=== PATIENT | female | born 1985 | race Caucasian/White ===

== ENCOUNTER → 2020-04-29 10:17 | Outpatient (CLI) | payer OTHER, SELFPAY ==
--- NOTE | ~2020-04-29 | US_ITS ---
EXAMINATION: US transvaginal DATE: 04/29/2020 10:52 INDICATION: Abnormal uterine bleeding. TECHNIQUE: Multiple transvaginal sonographic images of the pelvis were obtained. COMPARISON: None. FINDINGS: The uterus measures 9.9 x 5.1 x 6.3 cm. There is no free fluid in the pelvis. The endometrial complex measures 1.6 cm in thickness. The right ovary measures 4.5 x 2.9 x 4.2 cm. The left ovary measures 2 .9 x 1.6 x 3.1 cm. There is normal vascular flow in the ovaries. IMPRESSION: 1. Normal pelvis. Reviewed, dictated and finalized at location A. IMPRESSION: 1. Normal pelvis.
== END ==
PROVIDERS: PCP Internal Medicine; Visit Provider Obstetrics & Gynecology
DX: N92.6 Irregular menstruation, unspecified (principal)
CPT/HCPCS: 76830

== ENCOUNTER 2020-05-24 12:54 | Outpatient (CLI) | payer OTHER, SELFPAY ==
--- NOTE | ~2020-05-24 | US_ITS ---
EXAMINATION: US OB <=14 wk fetus w TV DATE: 05/24/2020 13:35 INDICATION: Spotting and cramping during first trimester TECHNIQUE: Real-time pelvic transabdominal and transvaginal ultrasound was performed. COMPARISON: None. FINDINGS: The uterus measures 11.7 x 8.1 x 6.2 cm. There is an intrauterine gestational sac. A 2.6 x 1.1 x 0.5 cm hypoechoic area is seen adjacent to the gestational sac. A yolk sac is identified. Feta l heart motion is identified measuring 123 beats per minute (bpm) by M-mode Doppler. The crown rump length measures 2.0 cm , which correlates with an estimated gestational age of 6 weeks and 6 day (s) (+/-) 3 day(s). The right ovary measures 5.1 x 2.9 x 2.5 cm. The left ovary measures 2.3 x 1.8 x 1.6 cm. There is nor mal vascular flow in the ovaries. There is no free fluid in the pelvis. IMPRESSION: 1. Live intrauterine with an estimated gestational age of 6 weeks and 6 day(s) (+/-) 3 day( s) and an estimated delivery date of 01/11/2021. 2. Small subchorionic hemorrhage. Reviewed, dictated and finalized at location B. IMPRESSION: 1. Live intrauterine with an estimated gestational age of 6 weeks and 6 day(s) (+/-) 3 day(s) and an estimated delivery date of 01/11/2021. 2. Small subchorionic hemorrhage.
== END 2020-05-24 12:55 | disposition home or self-care (01) ==
PROVIDERS: PCP Internal Medicine; Visit Provider Obstetrics & Gynecology
DX: O26.851 Spotting complicating pregnancy, first trimester (principal); Z3A.01 Less than 8 weeks gestation of pregnancy; O36.8911 Maternal care for other specified fetal problems, first trimester, fetus 1
CPT/HCPCS: 76801; 76817

== ENCOUNTER → 2020-06-20 11:47 | Outpatient (CLI) | payer OTHER, SELFPAY ==
--- NOTE | ~2020-06-20 | US_ITS ---
EXAMINATION: US OB limited DATE: 06/20/2020 12:05 INDICATION: Vaginal spotting. Subchorionic hemorrhage. TECHNIQUE: Real-time ultrasound of the pelvis was performed. The interpreting radiologist was not pre sent for the study. COMPARISON: 05/24/2020 FINDINGS: The uterus measures 13.3 x 6.7 x 10.0. There is an intrauterine gestational sac. A yolk sac and pole are identified. heart motion is identified measuring 159 beats per minute (bpm) by M-mode Doppler. 2.0 x 1.4 x 1.3 cm subchorionic hematoma along the left side of the gestational sac. The ov guevara are not visualized. There is no free fluid in the pelvis. IMPRESSION: 1. Single living intrauterine fetus with heart of 159 bpm 2. Persistent small subchorionic hematoma. Reviewed, dictated and finalized at location A.
== END ==
PROVIDERS: Visit Provider Obstetrics & Gynecology Gynecology
DX: O26.851 Spotting complicating pregnancy, first trimester (principal); O36.8910 Maternal care for other specified fetal problems, first trimester, not applicable or unspecified
CPT/HCPCS: 76815

== ENCOUNTER → 2020-07-19 08:28 | Outpatient (CLI) | payer OTHER, SELFPAY ==
--- NOTE | ~2020-07-19 | US_ITS ---
US OB limited 07/19/2020 08:55 Indication: Follow-up subchorionic hemorrhage Procedure: High-resolution Limited transabdominal obstetrical ultrasound Comparison: 06/20/2020 Findings: Single living intrauterine identified in vertex presentation with heart rat e of 155 BPM. Placenta anterior without previa measuring 5.2 cm to the cervix. Amniotic fluid is subj ectively normal. Decreased size of subchorionic hemorrhage measuring 8 x 6 x 5 mm compared with 20 x 14 x 13 mm on prior examination. Impression: 1: Single living intrauterine in vertex presentation. 2: Decreased size of subchorionic hemorrhage compared with prior study. Reviewed, dictated and finalized at location A. Impression: 1: Single living intrauterine in vertex presentation. 2: Decreased size of subchorionic hemorrhage compared with prior study.
== END ==
PROVIDERS: Visit Provider Obstetrics & Gynecology Gynecology
DX: O36.8910 Maternal care for other specified fetal problems, first trimester, not applicable or unspecified (principal); Z3A.00 Weeks of gestation of pregnancy not specified
CPT/HCPCS: 76815

== ENCOUNTER → 2020-07-25 14:39 | Outpatient (CLI) | payer OTHER, SELFPAY ==
--- NOTE | ~2020-07-25 | US_ITS ---
US OB limited DATE: 07/25/2020 14:56 INDICATION: Follow-up of subchorionic hematoma. Minimal vaginal spotting this week TECHNIQUE: Real-time imaging and Doppler analysis COMPARISON: 07/19/2020 obstetrical ultrasound Limited examination FINDINGS: Live single intrauterine gestation, fetus in variable position. The placenta is anterior. F etal heart rate 150 bpm. Subjectively normal amount of amniotic fluid. Previous 2.0 x 1.4 x 1.3 cm fluid collection subjacent to the gestational sac consistent with subchor ionic hemorrhage has diminished in size since 06/20/2020. Currently there is a small subchorionic zay dani measuring 2.9 x 0.4 x 1.1 cm. IMPRESSION: Small subchorionic hematoma measuring 2.9 x 0.4 x 1.1 cm Reviewed, dictated and finalized at Location A. Reviewed, dictated and finalized at location B.
== END ==
PROVIDERS: Visit Provider Obstetrics & Gynecology Gynecology
DX: O36.8910 Maternal care for other specified fetal problems, first trimester, not applicable or unspecified (principal); Z3A.00 Weeks of gestation of pregnancy not specified
CPT/HCPCS: 76815

== ENCOUNTER 2020-10-15 17:19 | Outpatient (RCR) | payer OTHER, SELFPAY ==
[2020-10-15 18:03] VITALS: BP 122/71; PULSE 88
== END 2021-01-07 07:52 | disposition home or self-care (01) ==
LOC: ANHOBOP 17:19
PROVIDERS: Visit Provider Obstetrics & Gynecology
DX: O99.891 Other specified diseases and conditions complicating pregnancy (principal); Z3A.27 27 weeks gestation of pregnancy; W19.XXXA Unspecified fall, initial encounter
CPT/HCPCS: 59025